=== PATIENT | male | born 1985 | race Two or more races ===

== ENCOUNTER 2023-06-28 11:07 | Outpatient (REF) | payer MEDICAID, OTHER, SELFPAY ==
[2023-06-28 13:40] LABS: MANUAL DIFF FLAG NO
[2023-06-28 13:44] LABS: Basophils Absolute Auto 0.1 X10*3/uL (0.0-0.2); Basophils Percent Auto 1.1 % (0-2); Eosinophils Absolute Auto 0.3 X10*3/uL (0.0-0.4); Eosinophils Percent Auto 3.7 % (0-4); Hematocrit 49.2 % (42.0-52.0); Hemoglobin 16.1 g/dl (14.0-18.0); Imm Gran Abs Auto 0.03 X10*3/uL (0.00-0.03); Imm Gran Pct Auto 0.4 % (0.0-0.4); Lymphocytes Absolute Auto 1.9 X10*3/uL (1.2-4.9); Lymphocytes Percent Auto 25.1 % (20-40); Mean Corpuscular HGB Conc 32.7 g/dl (31.0-36.0); Mean Corpuscular Hemoglobin 27.6 pg (27.0-33.0); Mean Corpuscular Volume 84.2 fL (80.0-98.0); Mean Platelet Volume 10.4 fL (9.4-12.4); Monocytes Absolute Auto 0.6 X10*3/uL (0.1-1.2); Monocytes Percent Auto 7.8 % (2-11); Neutrophils Absolute Auto 4.7 x10*3/uL (2.0-8.3); Neutrophils Percent Auto 61.9 % (45-73); Platelet Count 286 X10*3/uL (160-400); Red Blood Count 5.84 X10*6/uL (4.60-5.80); Red Cell Distribution Width 14.3 % (11.0-16.0); White Blood Count 7.5 X10*3/uL (4.8-10.8)
[2023-06-28 13:55] LABS: Estimated Average Glucose 114 mg/dL; Hemoglobin A1C 150.5261 umol/L; Hemoglobin A1c % 5.6 % (<6.0)
[2023-06-28 14:08] LABS: Alanine Aminotransferase 29 U/L (0-40); Albumin Level 4.5 g/dL (3.5-5.0); Alkaline Phosphatase 80 U/L (39-117); Anion Gap 13 (12-20); Aspartate Amino Transferase 25 U/L (5-37); Bilirubin Total 0.6 mg/dL (0.0-1.0); Blood Urea Nitrogen 14 mg/dL (9-16); Calcium 9.6 mg/dL (8.4-10.2); Carbon Dioxide 27 mmol/L (22-29); Chloride 103 mmol/L (96-108); Cholesterol 132 mg/dL (<200); Estimated Glomerular Filt Rate > 60; Glucose Random 78 mg/dL (60-115); HDL Cholesterol 43 mg/dL (>40); LDL Cholesterol Calculated 62 mg/dL (<100); Potassium 3.8 mmol/L (3.3-5.1); Sodium 139 mmol/L (135-145); Total Protein 7.8 g/dL (6.5-8.0); Triglycerides 137 mg/dL (<150)
[2023-06-28 14:26] LABS: TSH reflex Free T4 2.48 uIU/mL (0.32-4.0)
[2023-06-28 14:35] LABS: Reflex LDLD? No
[2023-06-28 14:58] LABS: CT PCR NOT DETECTED (Not Detect.); NG PCR NOT DETECTED (Not Detect.)
[2023-06-29 03:44] LABS: Syphilis Screen Nonreactive (Nonreactive)
[2023-06-29 04:07] LABS: HBS Num1 0.37 mIU/mL (0-7.99); HBc Num1 0.07 S/CO (0.00-0.79); HBsAGNum1 0.24 S/CO (0.00-0.99); HIV AB/AG Nonreactive (Nonreactive); HIV Num 1 0.04 S/CO (0.00-0.99); Hepatitis B Core Antibody Nonreactive (Nonreactive); Hepatitis B Surface Antigen Negative (Negative); ~HepC Num1 0.09 S/CO (0.00-0.79); ~Hepatitis B Surface Antibody NONREACTIVE (Nonreactive); ~Hepatitis C Antibody Nonreactive (Nonreactive)
[2023-06-29 04:12] LABS: Hepatitis A Antibody IgG REACTIVE (Nonreactive); ~Hepatitis A Antibody IgG 13.02 S/CO (0.00-0.99)
== END 2023-06-28 11:08 | disposition home or self-care (01) ==
LOC: HO.HHCL 11:07
PROVIDERS: Visit Provider Family Medicine
DX: R03.0 Elevated blood-pressure reading, without diagnosis of hypertension (principal); Z11.3 Encounter for screening for infections with a predominantly sexual mode of transmission; R42 Dizziness and giddiness; Z13.1 Encounter for screening for diabetes mellitus
CPT/HCPCS: 0353U; 36415; 80053; 80061; 83036; 84443; 85025; 86704; 86706; 86708; 86780; 86803; 87340; 87389

== ENCOUNTER 2023-08-01 07:24 | Outpatient (REF) | payer MEDICAID, OTHER, SELFPAY ==
--- NOTE | ~2023-08-01 | CT_ITS ---
EXAMINATION: CT HEAD WITHOUT CONTRAST CLINICAL INFORMATION: Dizziness. Tinnitus. COMPARISON: None. TECHNIQUE: Contiguous axial imaging was performed from the skullbase to vertex without intravenous administration of contrast. This CT examination was performed using dose optimization techniques as appropriate, variously including the following: *Automated exposure control *Adjustment of mA and/or kV according to patient size (this includes techniques or standardized protocols for targeted exams where dose is matched to indication/reason for exam; i.e. extremities or head) *Use of iterative reconstruction technique DLP: 855 mGy-cm. FINDINGS: There is no evidence of acute intracranial hemorrhage or territorial infarction. No abnormal mass effect or midline shift is seen. Wood to white matter differentiation is well preserved. No extra-axial fluid collections are identified. The ventricles are normal in size. There is no abnormal attenuation within the brain parenchyma. The osseous structures and soft tissues are normal. The mastoid air cells are well aerated. Mild ethmoid sinus mucosal thickening visible. CT/CT head/brain wo IV con IMPRESSION: No acute intracranial pathology.
== END 2023-08-01 07:25 | disposition home or self-care (01) ==
LOC: HO.CT 07:24
PROVIDERS: PCP Family Medicine; Visit Provider Family Medicine
DX: R42 Dizziness and giddiness (principal); H93.11 Tinnitus, right ear
CPT/HCPCS: 70450

== ENCOUNTER 2024-02-28 13:45 | Outpatient (REF) | payer MEDICAID, OTHER, SELFPAY ==
[2024-02-28 16:24] LABS: Hematocrit 49.6 % (42.0-52.0); Mean Corpuscular HGB Conc 32.3 g/dl (31.0-36.0); Mean Corpuscular Hemoglobin 27.4 pg (27.0-33.0); Mean Corpuscular Volume 85.1 fL (80.0-98.0); Mean Platelet Volume 10.5 fL (9.4-12.4); Platelet Count 264 X10*3/uL (160-400); Red Blood Count 5.83 X10*6/uL (4.60-5.80); Red Cell Distribution Width 14.2 % (11.0-16.0); White Blood Count 7.7 X10*3/uL (4.8-10.8)
== END 2024-02-28 13:46 | disposition home or self-care (01) ==
LOC: HO.HHCL 13:45
PROVIDERS: Visit Provider Family Medicine
DX: K64.9 Unspecified hemorrhoids (principal)
CPT/HCPCS: 36415; 85027